=== PATIENT | female | born 1980 | race Caucasian/White ===

== ENCOUNTER 2016-08-22 20:56 | Emergency (ER) | payer OTHER, MEDICAID ==
[2016-08-22] MEDS ORDERED: ONDANSETRON 4 MG ODT TAB ONE (21:55)
[2016-08-22] MEDS ORDERED: METOCLOPRAMIDE HCL 5 MG/ML 2ML VIAL ONE (21:55)
[2016-08-22] MEDS ORDERED: DIPHENHYDRAMINE HCL 50 MG/1 ML VIAL ONE (21:55)
== END 2016-08-22 22:16 | disposition home or self-care (01) ==
LOC: ED 20:56
DX: G43.909 Migraine, unspecified, not intractable, without status migrainosus (principal); F17.210 Nicotine dependence, cigarettes, uncomplicated
CPT/HCPCS: 96375; 99285 ×2; 96374; 96361; 36592; 36415; J1200; J2765; A9270

== ENCOUNTER 2016-09-02 12:53 | Emergency (ER) | payer OTHER, MEDICAID ==
[2016-09-02] MEDS ORDERED: DEXAMETHASONE SOD PHOS 10 MG/1 ML VIAL ONE (14:12)
[2016-09-02] MEDS ORDERED: KETOROLAC TROMETHAMINE 60 MG/2 ML VIAL ONE (14:12)
[2016-09-02] MEDS ORDERED: CEPHALEXIN 500 MG CAPSULE ONE (14:12)
== END 2016-09-02 14:30 | disposition home or self-care (01) ==
LOC: ED 12:53
DX: L03.211 Cellulitis of face (principal); F17.210 Nicotine dependence, cigarettes, uncomplicated; Z98.84 Bariatric surgery status
CPT/HCPCS: 99283 ×2; 96372; J1100; A9270; J1885

== ENCOUNTER 2016-10-19 20:26 | Emergency (ER) | payer OTHER, MEDICAID ==
[2016-10-19] MEDS ORDERED: KETOROLAC TROMETHAMINE 60 MG/2 ML VIAL ONE (22:44)
[2016-10-19] MEDS ORDERED: AZITHROMYCIN 250 MG TABLET ONE (22:44)
--- NOTE | 2016-10-20 07:54 | RAD ---
History: Dyspnea with chest pressure. Comparison: None. Technique: 2 views Findings: The soft tissue and bony structures are unremarkable. The heart size is appropriate. No infiltrate, effusion or pneumothorax is observed. The hilar and mediastinal structures are normal. Impression: 1. A negative 2 view chest
== END 2016-10-19 23:11 | disposition home or self-care (01) ==
LOC: ED 20:26
DX: G43.709 Chronic migraine without aura, not intractable, without status migrainosus (principal); J06.9 Acute upper respiratory infection, unspecified; F17.210 Nicotine dependence, cigarettes, uncomplicated